=== PATIENT | female | born 1950 | race Caucasian/White ===

== ENCOUNTER 2017-10-12 10:20 | Outpatient (CLI) | payer MEDICARE, SELFPAY ==
[2017-10-12 11:05] VITALS: BP 116/70; PULSE 73; RESP 18; TEMP 36.5; O2SAT 98
== END 2017-10-12 11:30 | disposition home or self-care (01) ==
PROVIDERS: PCP Family Medicine; Visit Provider Family Medicine
DX: M85.89 Other specified disorders of bone density and structure, multiple sites (principal)
CPT/HCPCS: 96372; J0897

== ENCOUNTER 2018-06-14 12:39 | Outpatient (CLI) | payer MEDICARE, SELFPAY ==
[2018-06-14 13:06] VITALS: BP 124/70; PULSE 75; RESP 18; TEMP 36.7; O2SAT 98
== END 2018-06-14 13:20 | disposition home or self-care (01) ==
LOC: INF 12:41
PROVIDERS: PCP Family Medicine; Visit Provider Family Medicine
DX: M85.89 Other specified disorders of bone density and structure, multiple sites (principal)
CPT/HCPCS: 96372; J0897

== ENCOUNTER 2018-12-27 09:50 | Outpatient (CLI) | payer MEDICARE, SELFPAY ==
[2018-12-27 09:45] VITALS: BP 125/76; PULSE 70; RESP 18; O2SAT 96
== END 2018-12-27 10:04 | disposition home or self-care (01) ==
LOC: INF 09:50
PROVIDERS: Visit Provider Family Medicine
DX: M85.89 Other specified disorders of bone density and structure, multiple sites (principal)
CPT/HCPCS: 96372; J0897

== ENCOUNTER 2019-10-16 14:25 | Outpatient (CLI) | payer MEDICARE, SELFPAY ==
[2019-10-16 14:40] VITALS: BP 127/68; PULSE 72; RESP 18; TEMP 36.8; O2SAT 96
== END 2019-10-16 15:00 | disposition home or self-care (01) ==
LOC: INF 14:29
PROVIDERS: Visit Provider Family Medicine
DX: M81.0 Age-related osteoporosis without current pathological fracture (principal)
CPT/HCPCS: 96372; J0897

== ENCOUNTER 2020-05-08 13:50 | Outpatient (CLI) | payer MEDICARE, SELFPAY ==
[2020-05-08 14:06] VITALS: BP 143/72; PULSE 71; RESP 18; TEMP 36.2; O2SAT 99
== END 2020-05-08 14:06 | disposition home or self-care (01) ==
LOC: INF 13:52
PROVIDERS: Visit Provider Family Medicine
DX: M81.0 Age-related osteoporosis without current pathological fracture (principal)
CPT/HCPCS: 96372; J0897

== ENCOUNTER 2020-11-10 13:35 | Outpatient (CLI) | payer MEDICARE, SELFPAY ==
[2020-11-10 13:48] VITALS: BP 165/70; PULSE 55; RESP 18; TEMP 36.2; O2SAT 98
== END 2020-11-10 13:48 | disposition home or self-care (01) ==
LOC: INF 13:36
PROVIDERS: PCP Family Medicine; Visit Provider Family Medicine
DX: M81.0 Age-related osteoporosis without current pathological fracture (principal)
CPT/HCPCS: 96372; J0897

== ENCOUNTER 2021-05-14 09:48 | Outpatient (CLI) | payer MEDICARE, SELFPAY ==
[2021-05-14 10:05] VITALS: BP 154/77; PULSE 68; RESP 16; O2SAT 98
== END 2021-05-14 10:20 | disposition home or self-care (01) ==
LOC: INF 09:50
PROVIDERS: PCP Family Medicine; Visit Provider Family Medicine
DX: M81.0 Age-related osteoporosis without current pathological fracture (principal)
CPT/HCPCS: 96372; J0897

== ENCOUNTER 2021-11-19 09:49 | Outpatient (CLI) | payer MEDICARE, SELFPAY ==
[2021-11-19 09:53] VITALS: BP 158/78; PULSE 78; RESP 18; TEMP 36.4; O2SAT 99
== END 2021-11-19 10:08 | disposition home or self-care (01) ==
LOC: INF 09:50
PROVIDERS: PCP Family Medicine; Visit Provider Family Medicine
DX: M81.0 Age-related osteoporosis without current pathological fracture (principal)
CPT/HCPCS: 96372; J0897

== ENCOUNTER 2022-09-16 10:41 | Outpatient (CLI) | payer MEDICARE, SELFPAY ==
[2022-09-16 11:03] VITALS: BP 134/68; PULSE 70; RESP 18; O2SAT 100
== END 2022-09-16 11:16 | disposition home or self-care (01) ==
LOC: INF 10:42
PROVIDERS: PCP Family Medicine; Visit Provider Family Medicine
DX: M85.80 Other specified disorders of bone density and structure, unspecified site (principal); M81.0 Age-related osteoporosis without current pathological fracture
CPT/HCPCS: 96372; J0897

== ENCOUNTER 2023-03-31 10:11 | Outpatient (CLI) | payer MEDICARE, SELFPAY ==
[2023-03-31] MEDS: DENOSUMAB 60 MG/ML SYRINGE SQ (10:26)
[2023-03-31 10:30] VITALS: BP 149/76; PULSE 76; RESP 18; TEMP 36.4; O2SAT 98
--- NOTE | 2023-03-31 10:30 | PC.NURSE ---
[id number] bassett cosigned charting for jono, rna
== END 2023-03-31 10:30 | disposition home or self-care (01) ==
LOC: INF 10:13
PROVIDERS: PCP Family Medicine; Visit Provider Family Medicine
DX: M85.89 Other specified disorders of bone density and structure, multiple sites (principal); M81.0 Age-related osteoporosis without current pathological fracture
CPT/HCPCS: 96372; J0897

== ENCOUNTER 2023-09-29 09:47 | Outpatient (CLI) | payer MEDICARE, SELFPAY ==
[2023-09-29] MEDS: DENOSUMAB 60 MG/ML SYRINGE SQ (10:06)
[2023-09-29 10:07] VITALS: BP 146/72; PULSE 76; RESP 18; TEMP 36.7; O2SAT 98
== END 2023-09-29 10:15 | disposition home or self-care (01) ==
LOC: INF 09:50
PROVIDERS: PCP Family Medicine; Visit Provider Family Medicine
DX: M81.0 Age-related osteoporosis without current pathological fracture (principal)
CPT/HCPCS: 96372; J0897

== ENCOUNTER 2024-04-05 09:25 | Outpatient (CLI) | payer MEDICARE, SELFPAY ==
[2024-04-05 09:40] VITALS: BP 147/76; PULSE 83; RESP 17; TEMP 36.9; O2SAT 96
[2024-04-05] MEDS: DENOSUMAB 60 MG/ML SYRINGE SUBCUT (09:40)
== END 2024-04-05 09:55 | disposition home or self-care (01) ==
LOC: INF 09:26
PROVIDERS: PCP Family Medicine; Visit Provider Family Medicine
DX: M81.0 Age-related osteoporosis without current pathological fracture (principal)
CPT/HCPCS: 96372; J0897